=== PATIENT | female | born 1960 | race Caucasian/White ===

== ENCOUNTER 2017-05-06 05:00 | Emergency (ER) | payer SELFPAY ==
[~2017-05-06] VITALS: Ht 157.5 cm; Wt 72.6 kg
[~2017-05-06 05:00] MED LIST: BEN50 PO; LORA10TA19 PO; PANT40EC PO
[2017-05-06 05:07] VITALS: BP 121/73
--- NOTE | 2017-05-06 05:14 | NUR ---
AMBULATED TO ER BED 8
--- NOTE | 2017-05-06 05:16 | NUR ---
PATIENT PRESENTS TO ED WITH C/O HEADACHE . PT DENIES N/V/D; SKIN IS PINK/WARM/DRY; AAOX4 WITH EVEN AND STEADY GAIT; LUNGS CLEAR BL; HR EVEN AND REGULAR; PT DENIES ANY FEVER, CP, SOB, OR COUGH AT THIS TIME; PATIENT STATES PAIN OF 9/10 AT THIS TIME; VSS; PATIENT POSITIONED FOR COMFORT; HOB ELEVATED; BEDRAILS UP X2; BED DOWN. ER MD MADE AWARE OF PT STATUS.
[2017-05-06] MEDS ORDERED: NACL 0.9% 1,000 ML IV ONE (05:25)
[2017-05-06] MEDS ORDERED: KETOROLAC 30 MG/ML VIAL IVP ONE (05:25)
[2017-05-06] MEDS ORDERED: diphenhydrAMINE 50 MG/ML VIAL IVP ONE (05:25)
[2017-05-06 05:48] LABS: APPEARANCE,URINE SL CLOUDY (CLEAR); BILIRUBIN,URINE 1+ (NEGATIVE); COLOR,URINE YELLOW (YELLOW); LEUKOCYTE ESTERASE ,URINE 2+ (NEGATIVE); NITRITE, URINE NEGATIVE (NEGATIVE); PROTEIN,URINE 1+ (NEGATIVE); UGLUCOSE NEGATIVE (NEGATIVE)
[2017-05-06 06:02] LABS: ANION GAP 15.7 (8-16); CALCIUM 8.1 mg/dL (8.5-10.1); CARBON DIOXIDE 23.7 mmol/L (21-32); CREATININE 0.7 mg/dL (0.6-1.3); POTASSIUM 3.4 mmol/L (3.5-5.1)
[2017-05-06 06:08] LABS: ICTOTEST NEGATIVE (NEGATIVE)
[2017-05-06 06:09] LABS: BACTERIA,URINE OCCASSIONAL /HPF (None Seen)
[2017-05-06 06:12] LABS: BLOOD, URINE 2+ (NEGATIVE)
[2017-05-06] MEDS ORDERED: HYDROcodone/APAP 5/325 MG 1 TAB TAB PO ONE (06:40)
--- NOTE | 2017-05-06 06:59 | NUR ---
Patient discharged with v/s stable. Written and verbal after care instructions given and explained. Patient verbalized understanding. Ambulatory with steady gait. All questions addressed prior to discharge. Advised to follow up with PMD.
[2017-05-06 07:00] VITALS: BP 121/73
== END 2017-05-06 06:50 | disposition home or self-care (01) ==
LOC: MED 05:00
DX: N39.0 Urinary tract infection, site not specified (principal)
CPT/HCPCS: 36415; 80048; 81001; 87086; 96361; 96374; 96375; 99285; J1200; J1885; J7030

== ENCOUNTER 2017-05-10 17:51 | Inpatient (IN) | payer SELFPAY ==
[~2017-05-10] VITALS: Ht 156.2 cm; Wt 73.9 kg
[2017-05-10 17:56] VITALS: BP 112/67
--- NOTE | 2017-05-10 20:47 | NUR ---
TO ER BED 8
--- NOTE | 2017-05-10 21:00 | NUR ---
56F BIB FAMILY C/O FEVER AND HEADACHE X 6 DAYS; PT STATES TOOK ADVIL AT 1500 TODAY. PT TEMP 98.1 AT THIS TIME. PT DENIES N/V/D; SKIN IS PINK/WARM/DRY; AAOX4 WITH EVEN AND STEADY GAIT; LUNGS CLEAR BL; HR EVEN AND REGULAR; PT DENIES ANY CP, SOB, OR COUGH AT THIS TIME; PATIENT STATES PAIN OF 8/10 AT THIS TIME; VSS; PATIENT POSITIONED FOR COMFORT; HOB ELEVATED; BEDRAILS UP X2; BED DOWN. ER MD MADE AWARE OF PT STATUS.
[2017-05-10] MEDS ORDERED: NACL 0.9% 1,000 ML IV ONE (21:15)
[2017-05-10] MEDS ORDERED: ONDANSETRON 4 MG/2 ML VIAL IVP ONE (21:15)
[2017-05-10] MEDS ORDERED: HYDROmorphone 1 MG/ML AMP IVP ONE (21:15)
[2017-05-10 21:48] LABS: LYMPHOCYTES # (AUTO) 1.3 K/uL (2.5-16.5); MEAN CORPUSCULAR HEMOGLOBIN 28 pg (27-31); MEAN CORPUSCULAR HGB CONC 34 g/dL (33-37); RED CELL DISTRIBUTION WIDTH 12.9 % (11.6-13.7); WHITE BLOOD COUNT (AUTO) 5.4 K/uL (4.8-10.8)
[2017-05-10 21:50] LABS: BASOPHILS % (AUTO) 0.6 % (0.0-2.0); EOSINOPHILS % (AUTO) 0.9 % (0.0-4.0); HEMATOCRIT 39.7 % (36-48); HEMOGLOBIN 13.3 g/dL (12.0-16.0); LYMPHOCYTES % (AUTO) 23.7 % (20.5-51.1); MEAN CORPUSCULAR VOLUME 84 fL (80-94); MONOCYTES # (AUTO) 0.3 K/uL (0.8-1.0); MONOCYTES % (AUTO) 5.4 % (1.7-9.3); NEUTROPHILS # (AUTO) 3.8 K/uL (1.8-7.7); NEUTROPHILS % (AUTO) 69.4 % (42.2-75.2); PLATELET COUNT (AUTO) 215 K/uL (140-450); RED BLOOD CELL COUNT(AUTO) 4.71 MIL/uL (4.20-5.40)
--- NOTE | 2017-05-10 21:50 | NUR ---
pt to ct via wc in stable condition
[2017-05-10 21:57] LABS: ANION GAP 12.9 (8-16); CALCIUM 8.4 mg/dL (8.5-10.1); CARBON DIOXIDE 28.1 mmol/L (21-32); CREATININE 0.8 mg/dL (0.6-1.3)
[2017-05-10 21:57] LABS: APPEARANCE,URINE CLEAR (CLEAR); BILIRUBIN,URINE NEGATIVE (NEGATIVE); BLOOD, URINE 2+ (NEGATIVE); COLOR,URINE YELLOW (YELLOW); LEUKOCYTE ESTERASE ,URINE TRACE (NEGATIVE); NITRITE, URINE NEGATIVE (NEGATIVE); PH,URINE 6.5 (5.0-9.0); PROTEIN,URINE NEGATIVE (NEGATIVE); UGLUCOSE NEGATIVE (NEGATIVE)
[2017-05-10 22:03] LABS: BACTERIA,URINE FEW /HPF (None Seen); SQUAMOUS EPITHELIAL CELL,UR 0-5 /LPF (0-3 (FEW)); WBC,URINE 0-5 /HPF (0-5)
--- NOTE | 2017-05-10 22:03 | NUR ---
pt returned from ct via wc in stable condition
[2017-05-10 22:06] LABS: INR 1.1 (0.8-1.2); PROTHROMBIN TIME 10.9 secs (10.8-13.4)
[2017-05-10] MEDS ORDERED: LIDOCAINE/EPI 2% 1:100000 20 ML VIAL INJ ONE (22:30)
--- NOTE | 2017-05-10 22:31 | NUR ---
CONSENT SIGNED FOR LUMBAR PUNCTURE TO BE PERFORMED BY DR HOPE. ALL APPROPRIATE QUESTIONS ASKED. PT STATES UNDERSTANDING OF PROCEDURE.
[2017-05-10] MEDS ORDERED: KETOROLAC 30 MG/ML VIAL IVP ONE (23:45)
[2017-05-11 00:13] LABS: CSF APPEARANCE CLEAR (CLEAR); CSF COLOR COLORLESS (COLORLESS)
[2017-05-11 00:14] LABS: CSF WHITE BLOOD CELL COUNT 2 /cumm (0-5)
[2017-05-11 00:15] LABS: CSF GLUCOSE 55 mg/dL (40-70); CSF PROTEIN 17 mg/dL (15-45); CSF RED BLOOD CELL COUNT 23 /cumm (0-0); CSF RED BLOOD CELL COUNT TUBE4 1 /cumm (0-0); CSF WHITE BLOOD CELL COUNT T#4 2 /cumm (0-5)
[2017-05-11] MEDS ORDERED: MORPHINE SULFATE 2 MG/ML SYR IVP PRN (01:35)
[2017-05-11] MEDS ORDERED: DOCUSATE SODIUM 100 MG GELCAP PO PRN (01:35)
[2017-05-11] MEDS ORDERED: ONDANSETRON 4 MG/2 ML VIAL IM/IVP PRN (01:35)
[2017-05-11] MEDS ORDERED: APAP/BUTAL/CAFF 325/50/40 MG 1 TAB PO PRN (01:45)
--- NOTE | 2017-05-11 01:59 | NUR ---
Patient will be admitted to care of Dr Hawkins. Admited to Tele. Will go to room 106B. Belongings list completed. Report to REGINE Motta.
[2017-05-11 02:10] VITALS: BP 130/66
--- NOTE | 2017-05-11 02:10 | NUR ---
Admitted from ED, with chief complaint of HEADACHE X4 DAYS, 56 y/o ,Female, Cooperative, Russian-speaking mostly. Daughter and MD at bedside assessing pt. Initial assessment done. Vital signs checked. Pt oriented to call light, bed, phone,television, bathroom, smoking policy, visiting hours, procedures, ID bracelet on. Belongings list checked. MRSA collected. No complaints of pain at this time.
[2017-05-11 02:54] LABS: CHOL/HDL RATIO 7.9 (1-4.5); FREE T4 (FREE THYROXINE) 1.18 ng/dL (0.76-1.46); MAGNESIUM 2.2 mg/dL (1.8-2.4); PHOSPHORUS 3.9 mg/dL (2.5-4.9); THYROID STIMULATING HORMONE 1.78 uIU/mL (0.34-3.74)
[2017-05-11] MEDS ORDERED: KETOROLAC 30 MG/ML VIAL IM PRN ×2 (03:00→03:55)
[2017-05-11] MEDS ORDERED: MECLIZINE 25 MG TAB PO PRN (03:00)
[2017-05-11] MEDS: NACL 0.9% 1,000 ML IV SCH ×2 (03:04→18:12)
[2017-05-11 04:56] LABS: AMPHETAMINE, URINE NEG. ng/ml (NEG <=1000); BARBITURATE, URINE POS. ng/ml (NEG <=200); BENZODIAZEPINE, URINE NEG. ng/mL (NEG <=200); CANNABINOID, URINE NEG. ng/mL (NEG <=50); COCAINE, URINE NEG. ng/mL (NEG <=300); OPIATE, URINE NEG. ng/mL (NEG <=2000); PHENCYCLIDINE SCREEN,URINE NEG. ng/mL (NEG <=25)
--- NOTE | 2017-05-11 05:00 | NUR ---
PT ASSISTED TO THE BATHROOM. PT AWARE THAT URINE SPECIMEN IS NEEDED. SPECIMEN HAT IN PLACED.
--- NOTE | 2017-05-11 05:00 | NUR ---
SPOKE TO DR ARMSTRONG REGARDING PHARMACY CLARIFICATION ABOUT TORADOL AND MEDICINE FOR HEADACHE. SHE SAID SHE'LL FIX IT.
[2017-05-11 05:15] VITALS: BP 128/64
--- NOTE | 2017-05-11 05:15 | NUR ---
PT BACK IN BED. IV RESUMED. VITAL SIGNS CHECKED. TEMP= 100.6 EXTRA BLANKET REMOVED. PT VERBALIZED UNDERSTANDING. PT STATES SHE HAS HEADACHE AND SHE FEELS PRESSURE ON HER EYES BUT DENIES BLURRY VISION. WILL MEDICATE FOR PAIN ORDERED.
[2017-05-11] MEDS ORDERED: cefTRIAXone 1,000 MG VIAL ONE (05:20)
[2017-05-11] MEDS: HYDROcodone/APAP 7.5/325 MG 1 TAB PO PRN ×2 (05:21→20:18)
[2017-05-11 06:48] LABS: BASOPHILS % (AUTO) 0.8 % (0.0-2.0); EOSINOPHILS # (AUTO) 0.1 K/uL (0-0.4); EOSINOPHILS % (AUTO) 1.1 % (0.0-4.0); HEMATOCRIT 34.7 % (36-48); HEMOGLOBIN 11.7 g/dL (12.0-16.0); LYMPHOCYTES # (AUTO) 1.1 K/uL (2.5-16.5); LYMPHOCYTES % (AUTO) 19.8 % (20.5-51.1); MEAN CORPUSCULAR HEMOGLOBIN 29 pg (27-31); MEAN CORPUSCULAR HGB CONC 34 g/dL (33-37); MEAN CORPUSCULAR VOLUME 85 fL (80-94); MONOCYTES # (AUTO) 0.4 K/uL (0.8-1.0); MONOCYTES % (AUTO) 7.1 % (1.7-9.3); NEUTROPHILS # (AUTO) 4.2 K/uL (1.8-7.7); NEUTROPHILS % (AUTO) 71.2 % (42.2-75.2); PLATELET COUNT (AUTO) 191 K/uL (140-450); RED CELL DISTRIBUTION WIDTH 12.7 % (11.6-13.7); WHITE BLOOD COUNT (AUTO) 5.8 K/uL (4.8-10.8)
--- NOTE | 2017-05-11 07:10 | NUR ---
RECIVED REPORT FROM NIGHT NURSE, PT IS AAOX4 MONGOLIAN SPEAKING, ON ROOM AIR, IV TO LEFT AC 20G INFUSING WELL, SKIN INTACT, KPAD AT BEDSIDE. INITIAL ASSESSMENT COMPLETED, REVIEWED PLAN OF CARE WITH PT, PT VERBALIZED UNDERSTANDING, ALL SAFETY PRECAUTIONS MET, ALL NEEDS MET, CALL LIGHT WITHIN REACH. WILL CONTINUE TO MONITOR.
[2017-05-11 07:20] LABS: ALBUMIN 2.9 g/dL (3.4-5.0); ANION GAP 12.5 (8-16); CALCIUM 7.7 mg/dL (8.5-10.1); CARBON DIOXIDE 26.4 mmol/L (21-32); CREATININE 0.6 mg/dL (0.6-1.3); POTASSIUM 3.9 mmol/L (3.5-5.1); TOTAL BILIRUBIN 0.5 mg/dL (0.0-1.0); TOTAL PROTEIN, SERUM 6.8 g/dL (6.4-8.2)
[2017-05-11 08:00] VITALS: BP 98/52
[2017-05-11] MEDS ORDERED: ATORVASTATIN 20 MG TAB PO SCH (09:00)
[2017-05-11] MEDS: LACTOBACILLUS RHAMNOSUS GG 1 EACH CAP PO SCH (09:00)
[2017-05-11] MEDS: ACETAMINOPHEN 325 MG TAB PO PRN ×3 (09:02→21:46)
[2017-05-11] MEDS: PANTOPRAZOLE 40 MG TABEC PO SCH (09:02)
[2017-05-11] MEDS: CYCLOBENZAPRINE 10 MG TAB PO SCH ×3 (09:02→16:36)
[2017-05-11] MEDS: ATORVASTATIN 20 MG TAB PO SCH (09:05)
--- NOTE | 2017-05-11 09:05 | NUR ---
DUE MEDICATIONS GIVEN, ALL NEEDS MET. WILL CONTINUE TO MONITOR
--- NOTE | 2017-05-11 11:44 | NUR ---
PT CURRENTLY RESTING IN BED. FAMILY AT BEDSIDE. ALL NEEDS MET. WILL CONTINUE TO MONITOR.
[2017-05-11 12:00] VITALS: BP 95/51
--- NOTE | 2017-05-11 14:24 | NUR ---
CHECKED IN ON PT, PT CURRENTLY SLEEPING, FAMILY AT BEDSIDE. WILL CONTINUE TO MONITOR.
--- NOTE | 2017-05-11 15:33 | NUR ---
TEMP OF 103.0, TYLENOL GIVEN, WILL REASSESS. ALL NEEDS MET.
[2017-05-11 16:00] VITALS: BP 122/54
--- NOTE | 2017-05-11 16:36 | NUR ---
DUE MEDICATION GIVEN, REASSESSED TEMP OF 99.0. ALL NEEDS MET, DAUGHTER AT BEDSIDE. WILL CONTINUE TO MONITOR.
--- NOTE | 2017-05-11 18:45 | NUR ---
PT CURRENTLY RESTING IN BED. NO S/S OF DISTRESS NOTED. ALL NEEDS MET. WILL CONTINUE TO MONITOR.
--- NOTE | 2017-05-11 19:15 | NUR ---
ENDORSED PLAN OF CARE TO NIGHT NURSE, PT IN STABLE CONDITION.
--- NOTE | 2017-05-11 19:30 | NUR ---
RECEIVED REPORT FROM AM NURSE. PT RESTING IN BED, AOX4, ABLE TO VERBALIZE NEEDS. HEATING PAD AT BEDSIDE TABLE AT THIS TIME DUE TO PT HAVING ELEVATED TEMP, COOLING MEASURES AND ICE PACKS IN PLACE, WILL CHECK TEMP. PT C/O HEADACHE, SEE PAIN ASSESSMENT, WILL MEDICATE ORDERED. PT STATED LBM 05/04/17, AWARE. CLASSIFICATION CLERK IN PLACE. PT DENIES CHEST PAIN, SOB OR S/S OF ACUTE DISTRESS. IV ACCESS ASYMPTOMATIC, PATENT AND INTACT. IVF INFUSING WELL. DISCUSSED AND REVIEWED PLAN OF CARE WITH PT. PT VERBALIZED UNDERSTANDING. SAFETY MEASURES ENSURED. CALL LIGHT WITHIN REACH. WILL CONTINUE TO MONITOR.
[2017-05-11 20:00] VITALS: BP 112/64
--- NOTE | 2017-05-11 20:21 | NUR ---
VS NOTED, TEMP 102.9; TYLENOL NOT DUE AT THIS TIME. PT ALSO C/O HEADACHE. SEE PAIN ASSESSMENT. NORCO ADMINISTERED ORDERED. WILL MONITOR PAIN AND TEMP. WILL NOTIFY MD. ICE PACKS AND COOLING MEASURES ENSURED. SAFETY MEASURES ENSURED. CALL LIGHT WITHIN REACH. WILL CONTINUE TO MONITOR.
--- NOTE | 2017-05-11 21:15 | NUR ---
CALLED DR GARCES, CATHEAD WORKER FOR DR HIGH. MADE AWARE OF PT TEMP 103 AFTER NORCO, AND MADE AWARE THAT TYLENOL PRN IS Q6H AND TORADOL PRN IS IM. STATED HE WILL CHANGE TYLENOL PRN TO Q4H AND TORADOL PRN TO IVP. ORDERS PENDING, WILL CARRY OUT.
[2017-05-11] MEDS ORDERED: KETOROLAC 30 MG/ML VIAL IVP PRN (21:20)
--- NOTE | 2017-05-11 21:50 | NUR ---
RECHECKED TEMP, 100.4, ADMINISTERED TYLENOL PRN ORDERED. COOLING MEASURES ENSURED. PT C/O HEADACHE, SEE PAIN ASSESSMENT, ADMINISTERED TORADOL IVP PRN ORDERED. PT VERBALIZED UNDERSTANDING, TOLERATED WELL. SAFETY MEASURES ENSURED. CALL LIGHT WITHIN REACH. WILL CONTINUE TO MONITOR PAIN AND TEMP.
--- NOTE | 2017-05-11 22:36 | NUR ---
RECHECK TEMP, 99.1, PT DENIES HEADACHE AT THIS TIME. PT STATED SHE HAS BEEN DRINKING A LOT OF COLD WATER, WHICH HELPED. COOLING MEASURES ENSURED. CONDITION STABLE. ALL NEEDS MET. SAFETY MEASURES ENSURED. CALL LIGHT WITHIN REACH.
[2017-05-12] VITALS: BP 93/60
--- NOTE | 2017-05-12 00:48 | NUR ---
CALLED DR GARCES, CLERICAL SUPERVISOR FOR DR HIGH. MADE AWARE OF PT'S BP 89/46, PT IS SLEEPING, ASYMPTOMATIC. INSTRUCTED BY MD TO TAKE BP WHILE SITTING. PT'S BP WHILE SITTING IS 93/60, PT IS ASYMPTOMATIC, PT DENIES DIZZINESS OR S/S OF ACUTE DISTRESS. MADE DR GARCES AWARE, STATED IT IS OK. NO FURTHER ORDERS GIVEN.
[2017-05-12 04:00] VITALS: BP 114/42
[2017-05-12] MEDS: ACETAMINOPHEN 325 MG TAB PO PRN ×2 (04:10→12:55)
--- NOTE | 2017-05-12 04:11 | NUR ---
PT C/O HEADACHE AND CHILLS. SEE PAIN ASSESSMENT. ADMINISTERED TYLENOL FOR MILD PAIN AND TEMP 99.1 AT THIS TIME. K-PAD ENSURED. ALL NEEDS MET. SAFETY MEASURES ENSURED. CALL LIGHT WITHIN REACH. WILL CONTINUE TO MONITOR.
[2017-05-12 06:16] LABS: ANION GAP 11.7 (8-16); CALCIUM 7.3 mg/dL (8.5-10.1); CARBON DIOXIDE 24.8 mmol/L (21-32); CREATININE 0.7 mg/dL (0.6-1.3); POTASSIUM 3.5 mmol/L (3.5-5.1)
--- NOTE | 2017-05-12 07:19 | NUR ---
ENDORSED PLAN OF CARE TO AM NURSE. CONDITION STABLE.
--- NOTE | 2017-05-12 07:20 | NUR ---
RECEIVED REPORT FROM NIGHT NURSE, PT IS AAOX4 GEORGIAN SPEAKING, ON ROOM AIR, IV TO LEFT AC 20G INFUSING WELL, SKIN INTACT, K-PAD ON NECK, INITIAL ASSESSMENT COMPLETED, REVIEWED PLAN OF CARE WITH PT, PT VERBALIZED UNDERSTANDING, ALL SAFETY PRECAUTIONS MET, ALL NEEDS MET, CALL LIGHT WITHIN REACH. WILL CONTINUE TO MONITOR.
[2017-05-12 07:34] VITALS: BP 96/50
[2017-05-12] MEDS: LACTOBACILLUS RHAMNOSUS GG 1 EACH CAP PO SCH (08:24)
[2017-05-12] MEDS: ATORVASTATIN 20 MG TAB PO SCH (08:24)
[2017-05-12] MEDS: CYCLOBENZAPRINE 10 MG TAB PO SCH ×2 (08:24→12:11)
[2017-05-12] MEDS: PANTOPRAZOLE 40 MG TABEC PO SCH (08:24)
--- NOTE | 2017-05-12 08:25 | NUR ---
DUE MEDICATIONS GIVEN, PT TOLERATED WELL, PT STATES NO HEADACHE AT THIS TIME. WILL CONTINUE TO MONITOR.
[2017-05-12 08:38] LABS: T4 (THYROXINE) 9.7 ug/dL (4.5-12.0)
--- NOTE | 2017-05-12 09:41 | NUR ---
PATIENT HAS BEEN SCREENED AND CATEGORIZED LOW NUTRITION RISK. PATIENT WILL BE SEEN WITHIN 7 DAYS OF ADMISSION. 05/17/[address]
[2017-05-12] MEDS: HYDROcodone/APAP 7.5/325 MG 1 TAB PO PRN (10:03)
--- NOTE | 2017-05-12 10:04 | NUR ---
TEMP OF 101.0, MEDICATED PER MD ORDERS. WILL CONTINUE TO MONITOR.
[2017-05-12 10:46] LABS: HEMOGLOBIN A1C 5.8 % (4.8-5.6)
[2017-05-12] MEDS: NACL 0.9% 1,000 ML IV SCH (10:52)
--- NOTE | 2017-05-12 11:33 | NUR ---
PT CURRENTLY RESTING IN BED, DAUGHTER AT BEDSIDE. WILL CONTINUE TO MONITOR.
[2017-05-12 12:00] VITALS: BP 116/60
--- NOTE | 2017-05-12 12:11 | NUR ---
DUE MEDICATION GIVEN. PT CURRENTLY EATING LUNCH. DAUGHTER AT BEDSIDE. WILL CONTINUE TO MONITOR.
--- NOTE | 2017-05-12 12:54 | NUR ---
TEMP OF 102.9, WILL MEDICATE PER MD ORDERS. WILL CONTINUE TO MONITOR.
[2017-05-12] MEDS ORDERED: SULF-58 PO (13:37)
--- NOTE | 2017-05-12 14:25 | NUR ---
DISCUSSED DISCHARGE PLAN WIT PT, PT VERBALIZED UNDERSTANDING.
[2017-05-12] MEDS ORDERED: ELA10 PO ×2 (14:41→14:57)
--- NOTE | 2017-05-12 15:00 | NUR ---
PT SIGNED ALL DISCHARGE PAPERWORK, DISCHARGE EDUCATION GIVEN, FOLLOW UP INFORMATION GIVEN, PRESCRIPTION GIVEN, PT VERBALIZED UNDERSTANDING, IV REMOVED TIP INTACT, ALL PERSONAL BELONGING WITH PT. DAUGHTER IN TO DOCTORATE OF CHIROPRACTIC PT.
--- NOTE | 2017-05-12 15:12 | NUR ---
PT WAS WHEELED OUT TO FRONT LOBBY IN STABLE CONDITION.
== END 2017-05-12 15:15 | disposition home or self-care (01) | DRG 74 ==
LOC: MED 17:51 → MTU 05-11 01:40
PROVIDERS: ADMIT Family Medicine; ATTEND Family Medicine
DX: G90.9 Disorder of the autonomic nervous system, unspecified (principal); N39.0 Urinary tract infection, site not specified; G43.009 Migraine without aura, not intractable, without status migrainosus; H53.149 Visual discomfort, unspecified; K21.9 Gastro-esophageal reflux disease without esophagitis; E78.5 Hyperlipidemia, unspecified; R31.9 Hematuria, unspecified; E83.51 Hypocalcemia; G89.29 Other chronic pain; M99.01 Segmental and somatic dysfunction of cervical region; R73.03 Prediabetes; D64.9 Anemia, unspecified; Z90.710 Acquired absence of both cervix and uterus
CPT/HCPCS: 36415; 62270; 70450; 71020; 80048; 80053; 80305; 81001; 82150; 82948; 83036; 83690; 83735; 83880; 84100; 84157; 84436; 84439; 84443; 84479; 85025; 85610; 85730; 86171; 87081; 87086; 87205; 93880; 96361; 96374; 97116; 99285; J0696; J1170; J1885; J2001; J2405; J7030; J7060; Q0092

== ENCOUNTER 2019-09-15 22:52 | Emergency (ER) | payer MEDICAID ==
[~2019-09-15] VITALS: Ht 167.6 cm; Wt 83.9 kg
[~2019-09-15 22:52] MED LIST changes: +ELA10 PO; +SULF-58 PO
[2019-09-15 23:00] VITALS: BP 115/73
--- NOTE | 2019-09-15 23:26 | NUR ---
59 YEAR OLD PATIENT COMPLAINS OF COUGH X 2 WEEKS, BLOOD IN COUGH X 1 DAY. PATIENT DENIES SPUTUM. PATIENT DENIES N/V/D. PATIENT STATES PROGRESSIVE SHORTNESS OF BREATH, THROAT PAIN 5/10. SPO2 98%, PATIENT LUNGS CTABL, BREATHING EVEN AND UNLABORED. BED IN LOWEST POSITION, LOCKED, BED RAIL UPX1. HX - NONE RX - PRILOSEC
[2019-09-16 02:10] VITALS: BP 115/73
--- NOTE | 2019-09-16 02:10 | NUR ---
DISCHARGE PAPERS GIVEN TO PT. PT STATES RELIEF. VSS. RX OF PREDNISONE GIVEN. SIDE EFFECTS EXPLAINED. INSTRUCTED TO F/U WITH PRIMARY DOCTOR AND WHEN TO RETURN TO ER. PT VERBALLIZED UNDERSTANDING OF DC INSTRUCTIONS. ALL QUESTIONS ANSWERED.
== END 2019-09-16 02:10 | disposition home or self-care (01) ==
LOC: MED 22:52
DX: R05 Cough (principal); R10.9 Unspecified abdominal pain; Z79.899 Other long term (current) drug therapy; K21.9 Gastro-esophageal reflux disease without esophagitis
CPT/HCPCS: 71045; 99283; Q0092

== ENCOUNTER 2020-06-04 01:45 | Emergency (ER) | payer MEDICAID ==
[~2020-06-04] VITALS: Ht 154.9 cm; Wt 78.5 kg
[2020-06-04 01:50] VITALS: BP 138/87
--- NOTE | 2020-06-04 01:55 | NUR ---
PT AMBULATED TO BED 06
--- NOTE | 2020-06-04 01:57 | NUR ---
59 Y/O FEMALE C/O R ARM PAIN. PT STATES 8/10 SHARP PAIN. NO SWELLING, OR BRUISING NOTED. DENIES N/V/D. PT DENIES ANY FEVER, SOB, OR COUGH AT THIS TIME. HOB ELEVATED. BEDRAILS UP X2. BED DOWN. MED HX: GERD, HIGH CHOLESTEROL NKA
--- NOTE | 2020-06-04 02:00 | NUR ---
ERMD AT BEDSIDE
[2020-06-04] MEDS ORDERED: IBUPROFEN 600 MG TAB PO ONE (02:05)
[2020-06-04] MEDS ORDERED: CYCLOBENZAPRINE 10 MG TAB PO ONE (02:05)
[2020-06-04] MEDS ORDERED: CRUSHER, PILL MC ONE (02:14)
--- NOTE | 2020-06-04 02:21 | NUR ---
LAB AT BEDSIDE
[2020-06-04 02:27] LABS: BASOPHILS % (AUTO) 0.3 % (0.0-2.0); EOSINOPHILS # (AUTO) 0.1 K/uL (0-0.4); EOSINOPHILS % (AUTO) 1.8 % (0.0-4.0); HEMATOCRIT 38.6 % (36-48); HEMOGLOBIN 12.9 g/dL (12.0-16.0); LYMPHOCYTES # (AUTO) 2.4 K/uL (2.5-16.5); LYMPHOCYTES % (AUTO) 31.3 % (20.5-51.1); MEAN CORPUSCULAR HEMOGLOBIN 30 pg (27-31); MEAN CORPUSCULAR HGB CONC 33 g/dL (33-37); MEAN CORPUSCULAR VOLUME 89.3 fL (80-94); MONOCYTES # (AUTO) 0.7 K/uL (0.8-1.0); MONOCYTES % (AUTO) 8.6 % (1.7-9.3); NEUTROPHILS # (AUTO) 4.4 K/uL (1.8-7.7); PLATELET COUNT (AUTO) 227 K/uL (140-450); RED BLOOD CELL COUNT(AUTO) 4.32 MIL/uL (4.20-5.40); RED CELL DISTRIBUTION WIDTH 13.4 % (11.6-13.7); WHITE BLOOD COUNT (AUTO) 7.6 K/uL (4.8-10.8)
--- NOTE | 2020-06-04 02:42 | NUR ---
XRAY AT BEDSIDE
[2020-06-04 02:47] LABS: ALBUMIN 3.7 g/dL (3.4-5.0); CARBON DIOXIDE 26.6 mmol/L (21-32); CREATININE 0.6 mg/dL (0.6-1.3); POTASSIUM 3.6 mmol/L (3.5-5.1); TOTAL BILIRUBIN 0.7 mg/dL (0.0-1.0)
[2020-06-04 03:46] VITALS: BP 138/87
--- NOTE | 2020-06-04 03:46 | NUR ---
Patient discharged with v/s stable. Written and verbal after care instructions given and explained. Patient alert, oriented and verbalized understanding of instructions. Ambulatory with steady gait. All questions addressed prior to discharge. ID band removed. Patient advised to follow up with PMD. Rx of LIDODERM AND FLEXERIL given. Patient educated on indication of medication including possible reaction and side effects. Opportunity to ask questions provided and answered.
== END 2020-06-04 03:46 | disposition home or self-care (01) ==
LOC: MED 01:45
DX: M79.601 Pain in right arm (principal); R20.2 Paresthesia of skin; R53.1 Weakness; K21.9 Gastro-esophageal reflux disease without esophagitis; Z79.899 Other long term (current) drug therapy
CPT/HCPCS: 36415; 73020; 80053; 84484; 85025; 85379; 93005; 99285; J7030; Q0092

== ENCOUNTER 2020-08-15 06:15 | Emergency (ER) | payer MEDICAID ==
[~2020-08-15] VITALS: Ht 157.5 cm; Wt 74.8 kg
[2020-08-15 06:18] VITALS: BP 147/90
[2020-08-15] MEDS ORDERED: KETOROLAC 30 MG/ML VIAL IVP ONE (06:35)
[2020-08-15] MEDS ORDERED: LIDOCAINE MPF 1% 10 MG/ML VIAL INJ ONE (06:35)
[2020-08-15] MEDS ORDERED: diphenhydrAMINE 50 MG/ML VIAL IVP ONE (06:35)
[2020-08-15] MEDS ORDERED: ONDANSETRON 4 MG/2 ML VIAL IVP ONE (06:35)
[2020-08-15] MEDS ORDERED: MECLIZINE 25 MG TAB PO ONE (06:35)
[2020-08-15 08:16] VITALS: BP 142/76
== END 2020-08-15 08:17 | disposition home or self-care (01) ==
LOC: MED 06:15
DX: S06.9X0A Unspecified intracranial injury without loss of consciousness, initial encounter (principal); S00.411A Abrasion of right ear, initial encounter; R42 Dizziness and giddiness; R51.9 Headache, unspecified; K21.9 Gastro-esophageal reflux disease without esophagitis; Z90.710 Acquired absence of both cervix and uterus; Z79.899 Other long term (current) drug therapy; W19.XXXA Unspecified fall, initial encounter; Y93.89 Activity, other specified; Y92.89 Other specified places as the place of occurrence of the external cause; Y99.8 Other external cause status
CPT/HCPCS: 70450; 96374; 96375; 99284; J1200; J1885; J2001; J2405; J8597

== ENCOUNTER 2020-09-28 08:05 | Emergency (ER) | payer MEDICAID ==
[~2020-09-28] VITALS: Ht 157.5 cm; Wt 78.5 kg
[2020-09-28 08:28] VITALS: BP 118/78
--- NOTE | 2020-09-28 09:04 | NUR ---
60/F C/O RIGHT EAR PAIN, MORALES 5/10, RIGHT EYE PAIN, ROOM'S SPLINING X YESTERDAY. MED HX: Josh RUGGIERO SECTION
[2020-09-28] MEDS ORDERED: IBUPROFEN 400 MG TAB PO ONE (09:20)
[2020-09-28 09:55] VITALS: BP 118/78
--- NOTE | 2020-09-28 09:55 | NUR ---
Patient discharged with v/s stable. Written and verbal after care instructions given and explained. Patient alert, oriented and verbalized understanding of instructions. Ambulatory with steady gait. All questions addressed prior to discharge. ID band removed. Patient advised to follow up with PMD. Rx of AGMENTIN, NORCO & MECLIZINE given. Patient educated on indication of medication including possible reaction and side effects. Opportunity to ask questions provided and answered.
== END 2020-09-28 09:55 | disposition home or self-care (01) ==
LOC: MED 08:05
DX: H66.91 Otitis media, unspecified, right ear (principal); H60.91 Unspecified otitis externa, right ear; R42 Dizziness and giddiness; N39.0 Urinary tract infection, site not specified; K21.9 Gastro-esophageal reflux disease without esophagitis; Z79.899 Other long term (current) drug therapy; Z90.711 Acquired absence of uterus with remaining cervical stump
CPT/HCPCS: 81002; 99283

== ENCOUNTER 2020-12-29 18:29 | Emergency (ER) | payer MEDICAID ==
[~2020-12-29] VITALS: Ht 170.2 cm; Wt 67.1 kg
[2020-12-29 18:45] VITALS: BP 134/80
--- NOTE | 2020-12-29 19:41 | NUR ---
PT TAKEN TO BED 2
--- NOTE | 2020-12-29 19:45 | NUR ---
PATIENT PRESENTS TO ED WITH C/O PAINFULURINATION AND SUPRABUBIC PAIN SINCE LAST NIGHT. SKIN IS PINK/WARM/DRY; AAOX4 WITH EVEN AND STEADY GAIT; LUNGS CLEAR BL; HR EVEN AND REGULAR; VSS; PATIENT POSITIONED FOR COMFORT; HOB ELEVATED; BEDRAILS UP X2; BED DOWN. ER MD MADE AWARE OF PT STATUS.
[2020-12-29 20:23] LABS: APPEARANCE,URINE HAZY (CLEAR); BILIRUBIN,URINE NEGATIVE (NEGATIVE); BLOOD, URINE 1+ (NEGATIVE); COLOR,URINE YELLOW (YELLOW); LEUKOCYTE ESTERASE ,URINE 1+ (NEGATIVE); NITRITE, URINE NEGATIVE (NEGATIVE); UGLUCOSE NEGATIVE (NEGATIVE)
[2020-12-29 21:04] LABS: WBC,URINE 16-25 (MOD) /HPF (0-5)
--- NOTE | 2020-12-29 21:29 | NUR ---
Dr. Bradshaw examining patient.
[2020-12-29] MEDS ORDERED: CEPH500C16 PO (21:58)
[2020-12-29] MEDS ORDERED: FLUCONAZOLE 100 MG TAB PO ONE (22:00)
--- NOTE | 2020-12-29 22:00 | NUR ---
PELVIC EXAM DONE, MYSELF AT BEDSIDE TO ASSIST.SWABS OBTAINED AND SENT TO LAB
[2020-12-29 22:25] VITALS: BP 128/74
== END 2020-12-29 22:25 | disposition home or self-care (01) ==
LOC: MED 18:29
DX: B37.3 Candidiasis of vulva and vagina (principal); N39.0 Urinary tract infection, site not specified
CPT/HCPCS: 36415; 81001; 81025; 87086; 87210; 87491; 99283

== ENCOUNTER 2021-07-25 06:25 | Emergency (ER) | payer MEDICAID ==
[~2021-07-25] VITALS: Ht 162.6 cm; Wt 71.7 kg
[~2021-07-25 06:25] MED LIST changes: +AMIT10TA36 PO; +CEPH500C16 PO; -ELA10 PO
[2021-07-25 06:32] VITALS: BP 119/65
--- NOTE | 2021-07-25 06:38 | NUR ---
PT AMBULATED TO RESTROOM AND BACK TO LOBBY.
--- NOTE | 2021-07-25 06:54 | NUR ---
ERMD EVALUATING PT IN TRIAGE.
[2021-07-25] MEDS ORDERED: CEPH-588 PO (07:01)
--- NOTE | 2021-07-25 07:11 | NUR ---
NO NURSING INTERVENTIONS DONE, NO COMPLETE ASSESSMENT NEEDED.
[2021-07-25 07:12] VITALS: BP 116/61
--- NOTE | 2021-07-25 07:13 | NUR ---
Patient discharged with v/s stable. Written and verbal after care instructions given URINARY TRACT INFECTION and explained. Patient alert, oriented and verbalized understanding of instructions. Ambulatory with steady gait. All questions addressed prior to discharge. ID band removed. Patient advised to follow up with PMD. Rx of KEFLEX 500MG PO BID given. Patient educated on indication of medication including possible reaction and side effects. Opportunity to ask questions provided and answered.
[2021-07-25 07:33] LABS: APPEARANCE,URINE CLOUDY (CLEAR); BILIRUBIN,URINE NEGATIVE (NEGATIVE); BLOOD, URINE 2+ (NEGATIVE); COLOR,URINE YELLOW (YELLOW); LEUKOCYTE ESTERASE ,URINE 2+ (NEGATIVE); NITRITE, URINE POSITIVE (NEGATIVE); UGLUCOSE NEGATIVE (NEGATIVE)
[2021-07-25 08:14] LABS: RBC,URINE NONE SEEN /HPF (0-5); WBC,URINE TOO MANY TO COUNT /HPF (0-5)
== END 2021-07-25 07:13 | disposition home or self-care (01) ==
LOC: MED 06:25
DX: N39.0 Urinary tract infection, site not specified (principal); K21.9 Gastro-esophageal reflux disease without esophagitis; E78.5 Hyperlipidemia, unspecified; Z90.710 Acquired absence of both cervix and uterus; Z98.51 Tubal ligation status; Z79.899 Other long term (current) drug therapy; Z79.2 Long term (current) use of antibiotics
CPT/HCPCS: 81001; 81025; 87086; 99283

== ENCOUNTER 2022-05-06 20:18 | Emergency (ER) | payer MEDICAID ==
[~2022-05-06] VITALS: Ht 157.5 cm; Wt 73.9 kg
[~2022-05-06 20:18] MED LIST changes: +CEPH-588 PO
[2022-05-06 20:20] VITALS: BP 132/76
--- NOTE | 2022-05-06 20:23 | NUR ---
TO LOBBY A/W BED AMBULATORY
[2022-05-06 21:28] LABS: BILIRUBIN,URINE NEGATIVE (NEGATIVE); BLOOD, URINE 2+ (NEGATIVE); LEUKOCYTE ESTERASE ,URINE 2+ (NEGATIVE); NITRITE, URINE NEGATIVE (NEGATIVE); PH,URINE 5.5 (5.0-9.0); UGLUCOSE NEGATIVE (NEGATIVE)
[2022-05-06 21:30] LABS: APPEARANCE,URINE HAZY (CLEAR); COLOR,URINE STRAW (YELLOW)
[2022-05-06 21:40] LABS: RBC,URINE 0-5 /HPF (0-5); WBC,URINE TOO MANY TO COUNT /HPF (0-5)
--- NOTE | 2022-05-06 22:58 | NUR ---
PT TAKEN TO BED 7
--- NOTE | 2022-05-06 23:25 | NUR ---
61 YO F BIB SELF FOR URINARY PAIN 04/29 FOR 2 DAYS. PT DENIES N/F/V/D/. PT STATES SHE ONLY DRANK CRANBERRY JUICE . PT NO MEDS FOR PAIN. PT STATES SHE HAS PAINFUL URINATION BUT NO BLOOD IS PRESENT. PMH:NONE RX: DENIES
[2022-05-06] MEDS ORDERED: CEPH-588 PO (23:30)
[2022-05-07 00:01] VITALS: BP 134/80
--- NOTE | 2022-05-07 00:01 | NUR ---
Patient discharged with v/s stable. Written and verbal after care instructions given and explained. Patient alert, oriented and verbalized understanding of instructions. Ambulatory with steady gait. All questions addressed prior to discharge. ID band removed. Patient advised to follow up with PMD. Rx of KEFLEX given. Opportunity to ask questions provided and answered.
--- NOTE | 2022-05-07 00:09 | NUR ---
The patient's care was reviewed and supervised by Renata Azul RN.
[2022-05-07] MEDS ORDERED: CEPH-588 PO (00:43)
== END 2022-05-07 00:01 | disposition home or self-care (01) ==
LOC: MED 20:18
DX: N30.00 Acute cystitis without hematuria (principal); K21.9 Gastro-esophageal reflux disease without esophagitis; Z90.710 Acquired absence of both cervix and uterus
CPT/HCPCS: 81001; 87086; 99283

== ENCOUNTER 2022-09-01 21:00 | Emergency (ER) | payer MEDICAID ==
[~2022-09-01] VITALS: Ht 157.5 cm; Wt 78.5 kg
[2022-09-01 21:23] VITALS: BP 131/49
--- NOTE | 2022-09-01 21:35 | NUR ---
UTI SYMPTOM SINCE YESTERDAY MED HX: GERD EDWIN
--- NOTE | 2022-09-02 00:06 | NUR ---
Patient being evaluated by physician Michael at bedside.
[2022-09-02] MEDS ORDERED: PHEN-1877 PO (00:17)
[2022-09-02] MEDS ORDERED: CIPR500T4 PO (00:17)
[2022-09-02] MEDS ORDERED: IBUP-2213 PO (00:17)
--- NOTE | 2022-09-02 00:21 | NUR ---
Patient discharged with v/s stable. Written and verbal after care instructions given and explained. Patient alert, oriented and verbalized understanding of instructions. Ambulatory with steady gait. All questions addressed prior to discharge. ID band removed. Patient advised to follow up with PMD. Rx of CIPRO IBUPROFEN PYRIDIUM given.
[2022-09-02 00:22] VITALS: BP 131/49
== END 2022-09-02 00:21 | disposition home or self-care (01) ==
LOC: MED 21:00
DX: N39.0 Urinary tract infection, site not specified (principal); K21.9 Gastro-esophageal reflux disease without esophagitis; Z90.710 Acquired absence of both cervix and uterus
CPT/HCPCS: 81002; 99283

== ENCOUNTER 2023-12-04 08:47 | Emergency (ER) | payer MEDICAID ==
[~2023-12-04] VITALS: Ht 157.5 cm; Wt 77.1 kg
[~2023-12-04 08:47] MED LIST changes: -AMIT10TA36 PO; +AMIT10TA47 PO; +CIPR500T4 PO; +IBUP-2213 PO; +PHEN-1877 PO
[2023-12-04 08:52] VITALS: BP 131/88; PULSE 74; RESP 16; TEMP 96.5; O2SAT 99
[2023-12-04 09:36] LABS: BASOPHILS % (AUTO) 0.5 % (0.0-2.0); EOSINOPHILS % (AUTO) 0.2 % (0.0-4.0); HEMATOCRIT 41.4 % (36-48); HEMOGLOBIN 14.1 g/dL (12.0-16.0); LYMPHOCYTES # (AUTO) 1.4 K/uL (2.5-16.5); LYMPHOCYTES % (AUTO) 18.4 % (20.5-51.1); MEAN CORPUSCULAR HEMOGLOBIN 29 pg (27-31); MEAN CORPUSCULAR HGB CONC 34 g/dL (33-37); MEAN CORPUSCULAR VOLUME 85.7 fL (80-94); MONOCYTES # (AUTO) 0.5 K/uL (0.8-1.0); MONOCYTES % (AUTO) 6.1 % (1.7-9.3); NEUTROPHILS # (AUTO) 5.7 K/uL (1.8-7.7); NEUTROPHILS % (AUTO) 74.8 % (42.2-75.2); PLATELET COUNT (AUTO) 222 K/uL (140-450); RED BLOOD CELL COUNT(AUTO) 4.84 MIL/uL (4.20-5.40); RED CELL DISTRIBUTION WIDTH 13.7 % (11.6-13.7); WHITE BLOOD COUNT (AUTO) 7.6 K/uL (4.8-10.8)
[2023-12-04] MEDS: NACL 0.9% 1,000 ML IV ONE (09:40)
[2023-12-04] MEDS: KETOROLAC 30 MG/ML VIAL IVP ONE (09:40)
[2023-12-04] MEDS: ONDANSETRON 4 MG/2 ML VIAL IVP ONE (09:40)
[2023-12-04 09:43] LABS: BILIRUBIN,URINE NEGATIVE (NEGATIVE); BLOOD, URINE 2+ (NEGATIVE); COLOR,URINE YELLOW (YELLOW); LEUKOCYTE ESTERASE ,URINE NEGATIVE (NEGATIVE); NITRITE, URINE NEGATIVE (NEGATIVE); PROTEIN,URINE NEGATIVE (NEGATIVE); UGLUCOSE NEGATIVE (NEGATIVE); UROBILINOGEN,URINE 0.2 EU/dL (0.2 - 1)
[2023-12-04 09:44] LABS: ANION GAP 14.8 (8-16); CALCIUM 8.8 mg/dL (8.5-10.1); CARBON DIOXIDE 26.2 mmol/L (21-32); CREATININE 0.6 mg/dL (0.6-1.3)
[2023-12-04 09:54] LABS: ALANINE AMINOTRANSFERASE 21 U/L (12-78); ALBUMIN 3.7 g/dL (3.4-5.0); ALKALINE PHOSPHATASE 104 U/L (50-136); ASPARTATE AMINOTRANSFERASE 19 U/L (15-37); BILIRUBIN,DIRECT 0.2 mg/dL (0.0-0.3); LIPASE 22 U/L (16-77); TOTAL PROTEIN, SERUM 8.7 g/dL (6.4-8.2)
[2023-12-04 09:54] LABS: APPEARANCE,URINE SLIGHTLY HAZY (CLEAR); BACTERIA,URINE FEW /HPF (None Seen); MUCUS,URINE 1+ /LPF (None Seen); SQUAMOUS EPITHELIAL CELL,UR 0-3 (FEW) /LPF (0-3 (FEW)); WBC,URINE 0-5 /HPF (0-5)
[2023-12-04] MEDS ORDERED: AMOX1TAB8 PO (11:32)
[2023-12-04] MEDS ORDERED: IBUP-2213 PO (11:32)
[2023-12-04 11:49] VITALS: BP 124/87; PULSE 76; RESP 18; TEMP 98; O2SAT 100
== END 2023-12-04 11:48 | disposition home or self-care (01) ==
LOC: MED 08:47
DX: K57.92 Diverticulitis of intestine, part unspecified, without perforation or abscess without bleeding (principal); K21.9 Gastro-esophageal reflux disease without esophagitis; Z79.899 Other long term (current) drug therapy
CPT/HCPCS: 36415; 74176; 80048; 80076; 81001; 82948; 83690; 84484; 85025; 93005; 96361; 96374; 96375; 99285; J1885; J2405; J7030

== ENCOUNTER 2023-12-08 11:35 | Emergency (ER) | payer MEDICAID ==
[~2023-12-08] VITALS: Ht 157.5 cm; Wt 78.5 kg
[~2023-12-08 11:35] MED LIST changes: +AMOX1TAB8 PO
[2023-12-08 11:52] VITALS: BP 101/61; PULSE 79; RESP 18; TEMP 98.7; O2SAT 97
[2023-12-08 12:35] VITALS: TEMP 98.7
[2023-12-08 13:14] LABS: BASOPHILS % (AUTO) 0.7 % (0.0-2.0); EOSINOPHILS % (AUTO) 0.4 % (0.0-4.0); HEMOGLOBIN 14.5 g/dL (12.0-16.0); LYMPHOCYTES # (AUTO) 1.9 K/uL (2.5-16.5); LYMPHOCYTES % (AUTO) 29.6 % (20.5-51.1); MEAN CORPUSCULAR HEMOGLOBIN 30 pg (27-31); MEAN CORPUSCULAR HGB CONC 35 g/dL (33-37); MEAN CORPUSCULAR VOLUME 85.4 fL (80-94); MONOCYTES # (AUTO) 0.4 K/uL (0.8-1.0); MONOCYTES % (AUTO) 6.4 % (1.7-9.3); NEUTROPHILS % (AUTO) 62.9 % (42.2-75.2); PLATELET COUNT (AUTO) 231 K/uL (140-450); RED BLOOD CELL COUNT(AUTO) 4.92 MIL/uL (4.20-5.40); RED CELL DISTRIBUTION WIDTH 13.6 % (11.6-13.7); WHITE BLOOD COUNT (AUTO) 6.3 K/uL (4.8-10.8)
[2023-12-08 13:18] LABS: APPEARANCE,URINE CLEAR (CLEAR); BILIRUBIN,URINE NEGATIVE (NEGATIVE); BLOOD, URINE 1+ (NEGATIVE); COLOR,URINE YELLOW (YELLOW); LEUKOCYTE ESTERASE ,URINE NEGATIVE (NEGATIVE); NITRITE, URINE NEGATIVE (NEGATIVE); PH,URINE 7.5 (5.0-9.0); PROTEIN,URINE NEGATIVE (NEGATIVE); UGLUCOSE NEGATIVE (NEGATIVE); UROBILINOGEN,URINE 0.2 EU/dL (0.2 - 1)
[2023-12-08 13:30] LABS: WBC,URINE 0-5 /HPF (0-5)
[2023-12-08 13:31] LABS: BACTERIA,URINE FEW /HPF (None Seen); SQUAMOUS EPITHELIAL CELL,UR 4-10 (MOD) /LPF (0-3 (FEW))
[2023-12-08 13:33] LABS: FLU A ANTIGEN negative (NEGATIVE); FLU B ANTIGEN negative (NEGATIVE)
[2023-12-08 13:40] LABS: ALANINE AMINOTRANSFERASE 27 U/L (12-78); ALBUMIN 3.9 g/dL (3.4-5.0); ALKALINE PHOSPHATASE 112 U/L (50-136); ANION GAP 14.5 (8-16); ASPARTATE AMINOTRANSFERASE 18 U/L (15-37); CALCIUM 8.8 mg/dL (8.5-10.1); CARBON DIOXIDE 25.6 mmol/L (21-32); CHLORIDE 105 mmol/L (98-107); CREATININE 0.5 mg/dL (0.6-1.3); GFR ARICAN-AMERICAN 161 mL/min (>90); GFR NON ARICAN-AMERICAN 133 mL/min (>90); GLUCOSE 107 mg/dL (74-106); POTASSIUM 4.1 mmol/L (3.5-5.1); SODIUM SERUM 141 mmol/L (136-145); UREA NITROGEN, BLOOD 11 mg/dL (7-18)
[2023-12-08] MEDS ORDERED: ONDA-188 PO (14:27)
[2023-12-08] MEDS ORDERED: ACET-10509 PO (14:27)
[2023-12-08] MEDS ORDERED: MECL-303 PO (14:27)
[2023-12-08 15:06] VITALS: BP 110/68; PULSE 66; RESP 16; O2SAT 98
== END 2023-12-08 15:06 | disposition home or self-care (01) ==
LOC: MED 11:35
DX: R42 Dizziness and giddiness (principal); Z20.822 Contact with and (suspected) exposure to COVID-19; K21.9 Gastro-esophageal reflux disease without esophagitis; Z79.899 Other long term (current) drug therapy
CPT/HCPCS: 36415; 71045; 80053; 81001; 83605; 84484; 85025; 87426; 87804; 93005; 99285; Q0092